=== PATIENT | male | born 1980 ===

== ENCOUNTER 2024-06-08 10:50 | Day surgery (SDC) | payer OTHER, BC ==
[~2024-06-08] VITALS: Ht 167.6 cm; Wt 62.7 kg
[~2024-06-08 10:50] MED LIST: Povidone-Iodine 450 DROP/30 ML Solution ONE; Tetracaine HCl/Pf 0.5% Opth Soln 4 ml ONE
[2024-06-08] MEDS ORDERED: NS 1,000 ML IV ONE (11:38)
[2024-06-08] MEDS ORDERED: TIZANIDINE HCL213 (11:43)
[2024-06-08] MEDS ORDERED: LINZESS72 MCG (11:44)
[2024-06-08] MEDS ORDERED: NEOPOLDEXS (11:44)
[2024-06-08] MEDS ORDERED: Potassium Chlo20 ME1 (11:44)
[2024-06-08] MEDS ORDERED: ATOR10 (11:44)
[2024-06-08] MEDS ORDERED: AMLODIPINE BESY10 MG (11:44)
[2024-06-08] MEDS ORDERED: PROGRAF0.510 (11:44)
[2024-06-08] MEDS ORDERED: Aspir 8181 MG (11:45)
[2024-06-08] MEDS ORDERED: PRED5 (11:45)
[2024-06-08] MEDS ORDERED: Lidocaine 2%-Epineph 1:200000 20 ML SDV ONE (12:02)
[2024-06-08] MEDS ORDERED: Bupivacaine HCl 0.25% 50 ML Vial ONE (12:09)
[2024-06-08] MEDS ORDERED: Midazolam HCl 1MG / ML 2ML Vial ONE ×2 (12:20→12:42)
[2024-06-08] MEDS ORDERED: FentaNYL Citrate 50 MCG/ML 2 ML Injection ONE ×2 (12:32→15:29)
[2024-06-08] MEDS ORDERED: propofoL 20 ML IV ONE (12:32)
[2024-06-08] MEDS ORDERED: Ondansetron HCl 2 MG / ML 2ML Vial ONE (12:33)
[2024-06-08] MEDS ORDERED: Dexamethasone Sod Phos 10 MG/ML 1ML VIAL ONE (12:33)
--- NOTE | 2024-06-08 12:52 | NUR ---
06/08/24 Samina Alexis REVIEWED CONSENT FORM WITH PATIENT WITH THIS RN WITNESS, PT SIGNED CONSENT FORM.
[2024-06-08] MEDS ORDERED: Lactated Ringer's 1,000 ML IV ONE (13:21)
[2024-06-08] MEDS ORDERED: Erythromycin 0.5% Opth Oint 1 gm ONE (14:17)
[2024-06-08] MEDS ORDERED: HYDROmorphone HCl/Pf 1MG SYR ONE (14:34)
--- NOTE | 2024-06-08 14:55 | NUR ---
06/08/24 [id number] Kika Peterson YIMIPRAVEEN IN ROOM WITH PT. PT TOLOERATING PO FLUIDS, CONTINUED PAIN WITH MEDICATION. WILL CONTINUE TO MONITOR
== END 2024-06-08 16:14 | disposition home or self-care (01) ==
LOC: ORSCSDS 10:50
DX: T85.398A Other mechanical complication of other ocular prosthetic devices, implants and grafts, initial encounter (principal); Z79.899 Other long term (current) drug therapy; Z79.82 Long term (current) use of aspirin; I10 Essential (primary) hypertension; Z87.891 Personal history of nicotine dependence; Z94.0 Kidney transplant status; Z94.83 Pancreas transplant status; H54.8 Legal blindness, as defined in USA
CPT/HCPCS: 88300; A9270; J1100; J1171; J2250; J2405; J2704; J3010